=== PATIENT | male | born 1990 ===

== ENCOUNTER 2018-06-28 17:50 | Emergency (ER) | payer OTHER ==
[2018-06-28 18:29] LABS: URINE BILIRUBIN NEGATIVE (NEGATIVE); URINE BLOOD NEGATIVE (NEGATIVE); URINE CLARITY Hazy (Clear); URINE COLOR Yellow (YELLOW); URINE GLUCOSE (UA) NORMAL (Normal); URINE LEUKOCYTE ESTERASE NEG Leu/uL (Negative); URINE PROTEIN NEGATIVE (NEGATIVE)
[2018-06-28] MEDS ORDERED: Sodium Chloride 0.9% 1,000 ML IV ONE (19:21)
--- NOTE | 2018-06-28 19:21 | C.PDOC ---
History Of Present Illness Patient presents to the ER with left flank pain, dysuria, and some discomfort to anterior right mid clavicular line around T5. Denies fever, chills, nausea, or vomiting. Time Seen by Provider: 06/28/18 19:21 Chief Complaint (Nursing): Male Genitourinary History Per: Patient History/Exam Limitations: no limitations Onset/Duration Of Symptoms: Hrs Current Symptoms Are (Timing): Still Present Severity: Moderate Pain Scale Rating Of: 4 Quality Of Discomfort: Unable To Describe Associated Symptoms: Urinary Symptoms (Dysuria), Other (Left flank pain). denies: Fever, Chills, Nausea, Vomiting Alleviating Factors: None Recent travel outside of the [place]: No Past Medical History Reviewed: Historical Data, Nursing Documentation, Vital Signs Vital Signs: Last Vital Signs Temp 98.0 F 06/28/18 18:03 Pulse 65 06/28/18 18:03 Resp 18 06/28/18 18:03 BP 142/81 06/28/18 18:03 Pulse Ox 100 06/28/18 18:03 - [facility] Procedures CLOSURE SKIN & SUBCUTANEOUS NEC (11/02/12) TETANUS TOXOID ADMINIST (11/02/12) Family History: States: No Known Family Hx - Social History Hx Alcohol Use: No Hx Substance Use: No - Immunization History Hx Tetanus Toxoid Vaccination: No Hx Influenza Vaccination: No Hx Pneumococcal Vaccination: No Review Of Systems Constitutional: Negative for: Fever, Chills Cardiovascular: Negative for: Chest Pain, Palpitations Respiratory: Negative for: Cough, Shortness of Breath Gastrointestinal: Negative for: Nausea, Vomiting, Diarrhea Genitourinary: Positive for: Dysuria Musculoskeletal: Positive for: Other (Left flank pain) Neurological: Negative for: Weakness, Numbness Physical Exam - Physical Exam Appears: Non-toxic Skin: Warm, Dry Head: Normacephalic Oral Mucosa: Moist Neck: Trachea Midline, Supple Chest: Symmetrical, Other (Tender lymph node around T5 area) Cardiovascular: Rhythm Regular Respiratory: No Rales, No Rhonchi, No Wheezing Gastrointestinal/Abdominal: Soft, No Tenderness Back: CVA Tenderness (Mild left) Neurological/Psych: Oriented x3 ED Course And Treatment - Laboratory Results Result Diagrams: 06/28/18 20:26 06/28/18 20:26 Lab Results: Urine Color Yellow (YELLOW) 06/28/18 18:21 Urine Clarity Hazy (Clear) 06/28/18 18:21 Urine pH 7.0 (5.0-8.0) 06/28/18 18:21 Ur Specific [place] 1.017 (1.003-1.030) 06/28/18 18:21 Urine Protein Negative mg/dL (NEGATIVE) 06/28/18 18:21 Urine Glucose (UA) Normal mg/dL (Normal) 06/28/18 18:21 Urine Ketones Negative mg/dL (NEGATIVE) 06/28/18 18:21 Urine Blood Negative (NEGATIVE) 06/28/18 18:21 Urine Nitrate Negative (NEGATIVE) 06/28/18 18:21 Urine Bilirubin Negative (NEGATIVE) 06/28/18 18:21 Urine Urobilinogen 2.0 mg/dL (0.2-1.0) 06/28/18 18:21 Ur Leukocyte Esterase Neg Shawn/uL (Negative) 06/28/18 18:21 Urine WBC (Auto) 1 /hpf (0-5) 06/28/18 18:21 Urine RBC (Auto) < 1 /hpf (0-3) 06/28/18 18:21 O2 Sat by Pulse Oximetry: 100 (Room air) Pulse Ox Interpretation: Normal Progress Note: Blood work and urinalysis ordered. IV fluids and toradol administered. Reevaluation Time: 22:37 Reassessment Condition: Improved Disposition Counseled Patient/Family Regarding: Studies Performed, Diagnosis, Need For Followup, Rx Given - Disposition Referrals: [facility] [Outside] [facility] [Outside] Disposition: HOME/ ROUTINE Disposition Time: 19:21 Condition: FAIR Additional Instructions: Please return if symptoms recur Prescriptions: traMADol [Ultram] 50 mg PO TID PRN #15 tab PRN Reason: Pain, Severe (8-10) Instructions: Renal Colic (DC) Forms: [facility] (Welsh), Work Excuse - Clinical Impression Clinical Impression: Renal colic - Scribe Statement The provider has reviewed the documentation as recorded by the Scribashlyn Cisse All medical record entries made by the Scribe were at my direction and personally dictated by me. I have reviewed the chart and agree that the record accurately reflects my personal performance of the history, physical exam, medical decision making, and the department course for this patient. I have also personally directed, reviewed, and agree with the discharge instructions and disposition.
[2018-06-28 20:29] LABS: BASO % 0.6 % (0.0-2.0); EOS # 0.1 K/uL (0.0-0.7); EOS % 1.1 % (0.0-4.0); LYMPH # 2.5 K/uL (1.0-4.3); LYMPH % 40.1 % (20.0-40.0); MEAN CELL VOLUME 87.5 fL (80.0-94.0); MEAN CORPUSCULAR HEMOGLOBIN 29.1 pg (27.0-31.0); MEAN CORPUSCULAR HGB CONC 33.3 g/dL (33.0-37.0); MEAN PLATELET VOLUME 8.8 fL (7.2-11.7); MONO # 0.5 K/uL (0.0-0.8); MONO % 8.8 % (0.0-10.0); NEUT # 3.1 K/uL (1.8-7.0); NEUT % 49.4 % (50.0-75.0); NRBC % 0.2 % (0.0-2.0); RBC 5.14 Mil/uL (4.40-5.90); RED CELL DISTRIBUTION WIDTH 14.1 % (11.5-14.5); WHITE BLOOD COUNT 6.2 K/uL (4.8-10.8)
[2018-06-28] MEDS ORDERED: Sodium Chloride 0.9% 1,000 ML ONE (20:29)
[2018-06-28 21:18] LABS: BLOOD UREA NITROGEN 13 mg/dL (9-20)
[2018-06-28 21:19] LABS: ALB/GLOB RATIO 1.6 (1.0-2.1); ALBUMIN 4.2 g/dL (3.5-5.0); ALT/SGPT 56 U/L (21-72); AST/SGOT 33 U/L (17-59); CALCIUM 8.5 mg/dl (8.6-10.4); GFR NON-AFRICAN AMERICAN > 60; LIPASE 121 U/L (23-300)
[2018-06-28 22:56] VITALS: BP 117/76; PULSE 68; RESP 20; TEMP 97.9; O2SAT 95
--- NOTE | 2018-06-29 10:14 | CT ---
Date of service: 06/28/2018 PROCEDURE: CT Abdomen and Pelvis without intravenous contrast HISTORY: left flank pain COMPARISON: Not available TECHNIQUE: Without contrast.. Contrast dose: 0 Radiation dose: Total exam DLP = 944.79 mGy-cm. This CT exam was performed using one or more of the following dose reduction techniques: Automated exposure control, adjustment of the mA and/or kV according to patient size, and/or use of iterative reconstruction technique. FINDINGS: LOWER THORAX: Unremarkable. LIVER: Unremarkable. No gross lesion or ductal dilatation. GALLBLADDER AND BILE DUCTS: Partially contracted. No calcified gallstones. PANCREAS: Unremarkable. No gross lesion or ductal dilatation. SPLEEN: Unremarkable. ADRENALS: Unremarkable. No mass. KIDNEYS AND URETERS: Unremarkable. No hydronephrosis. No solid mass. VASCULATURE: Unremarkable. No aortic aneurysm. No aortic atherosclerotic calcification or mural plaque present. BOWEL: No bowel obstruction. Sigmoid diverticulosis without evidence of diverticulitis. No other abnormal bowel loops. APPENDIX: Unremarkable. Normal appendix. PERITONEUM: Unremarkable. No free fluid. No free air. LYMPH NODES: Unremarkable. No enlarged lymph nodes. BLADDER: Unremarkable. REPRODUCTIVE: Normal prostate BONES: No acute fracture. OTHER FINDINGS: Bilateral gynecomastia. IMPRESSION: No acute abnormality. Contracted gallbladder. No cholelithiasis. Bilateral gynecomastia. The preliminary findings for this examination were reported by [facility] at 9:55 p.m. on 06/28/2018. There is concurrence of this report with the preliminary findings.
== END 2018-06-28 22:56 | disposition home or self-care (01) ==
LOC: C.ER 17:50
DX: N23 Unspecified renal colic (principal)
CPT/HCPCS: 74176; 80053; 81001; 83690; 85025; 96361; 96374; 99284; J1885; J7030